=== PATIENT | female | born 1995 | race Two or more races ===

== ENCOUNTER 2025-02-14 07:00 | Day surgery (SDC) | payer MEDICAID, SELFPAY ==
[2025-02-11 09:49] VITALS: BMI 34.0
[2025-02-11 10:31] LABS: Basophils # (Auto) 0.1 Thou/mm3 (0.0-0.2); Basophils % (Auto) 1 % (0-2.5); Eosinophils # (Auto) 0.3 Thou/mm3 (0.0-0.5); Eosinophils % (Auto) 4 % (0-10); Hematocrit 38.6 % (36.0-46.0); Hemoglobin 12.9 g/dL (12.0-16.0); Immature Granulocytes Auto 0.02 Thou/mm3 (0.00-0.00); Lymphocytes # (Auto) 3.4 Thou/mm3 (1.0-4.8); Lymphocytes % (Auto) 40 % (10-50); Mean Corpuscular HGB Conc 33.4 g/dl (31.0-37.0); Mean Corpuscular Hemoglobin 28.5 pg (25.0-35.0); Mean Corpuscular Volume 85 fL (80-100); Monocytes # (Auto) 0.6 Thou/mm3 (0.0-0.8); Monocytes % (Auto) 7 % (0-12); Neutrophils # (Auto) 4.1 Thou/mm3 (1.8-7.7); Neutrophils % (Auto) 48 % (37-80); Nucleated Red Blood Cell # 0.00 Thou/mm3 (0.00-0.00); Nucleated Red Blood Cell % 0 /100 WBC (0); Platelet Count 350 Thou/mm3 (140-440); RDW Standard Deviation 40.4 fL (36.4-46.3); Red Blood Count 4.52 Miln/mm3 (4.00-5.20); White Blood Count 8.5 Thou/mm3 (3.6-11.0)
[2025-02-11 11:16] LABS: Alanine Aminotransferase 10 U/L (10-49); Albumin, Serum 4.6 gm/dL (3.5-5.0); Albumin/Globulin Ratio 1.9 (1.2-2.2); Alkaline Phosphatase 61 U/L (46-116); Anion Gap 10 (7-16); Aspartate Amino Transferase 17 U/L (0-34); BUN/Creatinine Ratio 10 Ratio (12-20); Bilirubin,Total 1.3 mg/dL (0.3-1.2); Blood Urea Nitrogen 8 mg/dL (9-23); Calcium 9.4 mg/dL (8.3-10.6); Calcium (Corrected) 9.4 mg/dL (8.5-10.1); Carbon Dioxide 26.6 mMol/L (20.0-31.0); Chloride 104 mMol/L (98-107); Creatinine (Component) 0.8 mg/dL (0.6-1.3); Estimated Creatinine Clearance 118.8 mL/min (>60); Globulin 2.4 gm/dL (2.3-3.5); Glucose 87 mg/dL (74-106); Osmolality,Calculated 278 (275-295); Potassium 3.6 mMol/L (3.4-5.1); Sodium 141 mMol/L (136-145); Total Protein 7.0 gm/dL (5.7-8.2); eGFR > 60 See Note
[2025-02-11 14:49] LABS: Beta HCG,Quantitative < 1 mIU/mL (<5.0)
[2025-02-14] VITALS (9 sets, daily range): BP systolic 87–124; BP diastolic 50–84; PULSE 65–98; RESP 8–17; TEMP 36.5–36.8; O2SAT 88–100; BMI 34.2
[2025-02-14] MEDS: RINGERS LACTATED 1000 ML 1,000 ML 20 ML IV (07:22)
--- NOTE | 2025-02-14 09:40 | ESOP_ITS ---
Date of Procedure 02/14/25 Pre Op Diagnosis Symptomatic cholelithiasis Post Op Diagnosis Cholelithiasis with cholecystitis Procedure Laparoscopic cholecystectomy Findings Moderately distended gallbladder with gallstones and chronic cholecystitis Procedure Description Patient was brought into the operating room in supine position. After adm inistration of general endotracheal anesthesia abdomen was prepped and draped in standard surgical manner. A Veress needle was inserted through the umbilicus and pneumoperitoneum was obtained up to 15 mmHg. The Veress needle was then removed, a 5 mm infraumbilical incision was made and the 5mm trocar was inserted. Laparoscopic camera was placed. Under direct visualization a laparoscopic camera a 10 mm trocar was placed in subxiphoid and two 5 mm trocars placed in right upper quadrant. The gallbladder was identified and was noted to be moderately distended with gallstones and chronic cholecystitis. It was retracted cephalad and laterally. Dissection started near the infundibulum of gallbladder where cystic duct and gallbladder junction clearly identified. The cystic duct was circumferentially dissected off the peritoneum and surrounding inflammatory tissue. The critical view of safety was clearly demonstrated. Cystic duct was then divided between 2 endoclips proximally and one distally. The cystic artery was similarly dissected and divided. The gallbladder was then from the liver bed using electrocautery. The gallbladder was then placed inside an Endo Catch and removed from the abdomen utilizing subxiphoid trocar site. The area was copiously and thoroughly washed and irrigated, all the fluid was suctioned and the suction fluid returned clear. Hemostasis achieved using electrocautery. Endoclips noted be in place and intact without any bleeding or any leakage. Hemostasis was adequate and satisfactory. The subxiphoid trocar sites fascial defect was closed with 0 Vicryl using Endo Closure device. Instruments and trocars removed, pneumoperitoneum was evacuated and the incisions closed with 4-0 Monocryl in subcuticular fashion. Instrument needle and sponge counts were all reported to be correct X2. Patient tolerated the procedure well, was extubated, breathing spontaneously and without difficulty and was transferred to postanesthesia care in stable condition. Anesthesia GETA and local Pathology / specimen Other (Gallbladder and contents) Estimated Blood Loss 25 Condition Stable Disposition PACU Surgeon Mathew Dimas MD Surgical Staff Operation Date: 02/14/25 09:00 Case Staff [employer]: Primo Escamilla
--- NOTE | 2025-02-14 09:51 | SUR.PHASEI ---
Pt. arrived to recovery via gurney, eyes closed, not responding to verbal commands, pt. appears to be retracting, minimal effort and rise and fall to chest, 02 saturation 88%, pt. has history of asthma, Primo BELL gave verbal order to give albuterol 3ml via nebulizer, and was given, Primo BELL performed jaw thrust to open airway. Pt. receiving 15 liters 02 via oxymask. Pt. 02 saturation improving with breathing treatment. Lung sounds clear, lap sites x4 to abdomen, dermabond intact, no active bleeding or redness noted. Report received from Michael VILCHIS and Primo BELL.
[2025-02-14] MEDS: ALBUTEROL/IPRATROPIUM (Duoneb) RT SOL 3 ML NEBU INH (09:55)
--- NOTE | 2025-02-14 10:10 | SUR.PHASEI ---
Pt. sitting up, lung sounds clear, equal expansion, no c/o pain or nausea at this time, pt. is tolerating small sips of water.
[2025-02-14] MEDS: fentaNYL CIT INJ 50 mCg/ML AMP 2ML IVP (10:31)
[2025-02-14] MEDS: ONDANSETRON INJ 2 MG/ML INJ 2 ML 4 MG IVP (11:02)
--- NOTE | 2025-02-14 11:18 | SUR.PHASEII ---
1102 patient complained of nausea, patient medication per anesthesia order Zofran 4mg via IVP, will monitor 1118 patient eating ice chips with her nausea at a tolerable level, stated the medication helped her
--- NOTE | 2025-02-14 11:25 | SUR.PHASEII ---
1125 Patient meets discharge criteria from recovery, awake and alert, breathing unlabored, vital signs stable, per patient her pain is tolerable, drinking fluids with her nausea at a tolerable level, dressing intact; no bleeding noted, patient mother assisted her with dressing into her clothing, discharge instructions given to patient, her father and mother, father signed discharge instructions. Patient given all her belongings prior to discharge, transported via wheelchair and left in a private vehicle.
== END 2025-02-14 11:25 | disposition home or self-care (01) ==
PROVIDERS: PCP Internal Medicine; Referring Provider Surgery; Visit Provider Surgery
PROC: 0FT44ZZ Resection of Gallbladder, Percutaneous Endoscopic Approach (ICD-10-PCS; CPT 47562; principal; 2025-02-14 09:00)
DX: K80.10 Calculus of gallbladder with chronic cholecystitis without obstruction (principal); J45.909 Unspecified asthma, uncomplicated; F41.9 Anxiety disorder, unspecified
CPT/HCPCS: 47562; 36415; 80053; 84702; 85025; A4217; A4649; J0131; J0694; J1100; J1171; J2250; J2405; J2704; J3010; J3490; J7120